=== PATIENT | female | born 1990 | race African-American/Black ===

== ENCOUNTER 2022-02-22 18:23 | Emergency (ER) | payer MEDICAID ==
[~2022-02-22] VITALS: Ht 165.1 cm; Wt 116.0 kg
[2022-02-22 18:26] VITALS: BP 162/106
[2022-02-22] MEDS ORDERED: LIDOCAINE HCL/PF 1% 10 MG/ML 5ML VIAL INFIL ONE (19:30)
[2022-02-22] MEDS ORDERED: CEPH500C2 MT (20:23)
[2022-02-22] MEDS ORDERED: IBUP-2028 MT (20:23)
[2022-02-22] MEDS ORDERED: SULF1TAB48 MT (20:23)
== END 2022-02-22 20:53 | disposition home or self-care (01) ==
LOC: ER 18:23
DX: N76.0 Acute vaginitis (principal); I10 Essential (primary) hypertension
CPT/HCPCS: 10060; 81025; 99282